=== PATIENT | male | born 1995 | race Caucasian/White ===

== ENCOUNTER 2025-01-02 03:29 | Emergency (ER) | payer OTHER ==
[~2025-01-02] VITALS: Ht 170.2 cm; Wt 68.0 kg
[2025-01-02 03:39] VITALS: O2SAT 99
[2025-01-02 05:43] VITALS: TEMP 37.4
[2025-01-02] MEDS: DIAZEPAM 5 MG TABLET PO ONE (06:36)
[2025-01-02] MEDS: ONDANSETRON 4MG ODT PO ONE (06:36)
[2025-01-02 07:10] LABS: BASOPHILS % 0.4 % (0.0-2.0); EOSINOPHILS % 0.2 % (0.0-5.0); HEMATOCRIT. 44.3 % (42.0-52.0); HEMOGLOBIN. 15.7 g/dL (14.0-18.0); LYMPHOCYTES % 26.2 % (20.0-50.0); MEAN CORPUSCULAR HEMOGLOBIN 32.5 pg (28.0-32.0); MEAN CORPUSCULAR HGB CONC 35.4 g/dL (31.0-37.0); MEAN CORPUSCULAR VOLUME 91.8 fL (80.0-94.0); MONOCYTES % 8.7 % (2.0-8.0); NEUTROPHILS % 64.5 % (40.0-76.0); PLATELET 259 x1000/uL (130-400); RED BLOOD CELL COUNT 4.83 mill/uL (4.7-6.1)
[2025-01-02 07:14] LABS: CARBON DIOXIDE 26 mEq/L (21-32); CHLORIDE 94 mEq/L (98-107); POTASSIUM 3.9 mEq/L (3.5-5.1); SODIUM 135 mEq/L (136-145)
[2025-01-02 07:15] LABS: CALCIUM 10.7 mg/dL (8.7-10.4)
[2025-01-02 07:19] LABS: CREATININE 1.1 mg/dL (0.6-1.3)
[2025-01-02 07:20] LABS: GLUCOSE 82 mg/dL (70-105); UREA NITROGEN BLOOD 13 mg/dL (9-23)
[2025-01-02 07:21] LABS: ACETAMINOPHEN < 2 ug/mL (10-30); ALANINE AMINOTRANSFERASE 23 IU/L (10-49); ASPARTATE AMINOTRANSFERASE 31 IU/L (<34)
[2025-01-02 07:22] LABS: ALBUMIN 5.8 g/dL (3.2-4.8); BILIRUBIN TOTAL 1.3 mg/dL (0.1-1.0); PROTEIN TOTAL 8.3 g/dL (6.0-8.3)
[2025-01-02 09:01] VITALS: BP 168/100; PULSE 95; RESP 18; O2SAT 100
== END 2025-01-02 09:02 | disposition home or self-care (01) ==
LOC: ER 03:29
DX: F41.9 Anxiety disorder, unspecified (principal); R11.0 Nausea; R07.9 Chest pain, unspecified; Z79.899 Other long term (current) drug therapy
CPT/HCPCS: 80053; 80307; 85025; 36415; 71045; 93005; 99285; Q0162; Z7610

== ENCOUNTER 2025-01-15 17:20 | Emergency (ER) | payer OTHER ==
[~2025-01-15] VITALS: Ht 175.3 cm; Wt 69.0 kg
[2025-01-15 17:28] VITALS: O2SAT 97
[2025-01-15] MEDS ORDERED: ONDANSETRON 4MG ODT PO STA (18:37)
[2025-01-15 19:01] LABS: BASOPHILS % 0.8 % (0.0-2.0); EOSINOPHILS % 0.5 % (0.0-5.0); HEMATOCRIT. 40.9 % (42.0-52.0); HEMOGLOBIN. 14.3 g/dL (14.0-18.0); LYMPHOCYTES % 39.7 % (20.0-50.0); MEAN CORPUSCULAR HEMOGLOBIN 32.3 pg (28.0-32.0); MEAN CORPUSCULAR HGB CONC 34.9 g/dL (31.0-37.0); MEAN CORPUSCULAR VOLUME 92.6 fL (80.0-94.0); MEAN PLATELET VOLUME 8.3 fl (7.4-10.4); MONOCYTES % 4.7 % (2.0-8.0); NEUTROPHILS % 54.3 % (40.0-76.0); PLATELET 221 x1000/uL (130-400); RED BLOOD CELL COUNT 4.42 mill/uL (4.7-6.1); RED CELL DISTRIBUTION WIDTH 13.7 % (11.6-14.6); WHITE BLOOD COUNT 5.2 x1000/uL (4.5-11.0)
[2025-01-15 19:08] LABS: CHLORIDE 107 mEq/L (98-107); POTASSIUM 3.5 mEq/L (3.5-5.1); SODIUM 147 mEq/L (136-145)
[2025-01-15 19:09] LABS: CARBON DIOXIDE 28 mEq/L (21-32)
[2025-01-15 19:10] LABS: CALCIUM 8.6 mg/dL (8.7-10.4)
[2025-01-15 19:12] LABS: PROTHROMBIN TIME 11.1 sec (9.6-11.0)
[2025-01-15 19:14] LABS: CREATININE 0.8 mg/dL (0.6-1.3); GLUCOSE 96 mg/dL (70-105); UREA NITROGEN BLOOD 14 mg/dL (9-23)
[2025-01-15 19:35] LABS: ETHANOL BLOOD 410 mg/dL (<10)
[2025-01-15] MEDS: SODIUM CHLORIDE 0.9% 1,000 ML IV ONE (20:28)
[2025-01-15 20:35] LABS: CLARITY URINE CLEAR (CLEAR); COLOR URINE YELLOW (YELLOW); GLUCOSE URINE NEGATIVE (NEGATIVE); KETONES URINE NEGATIVE (NEGATIVE); LEUKOCYTE ESTERASE URINE NEGATIVE (NEGATIVE); NITRITE URINE NEGATIVE (NEGATIVE); OCCULT BLOOD URINE NEGATIVE (NEGATIVE); PH URINE 7.5 (4.5-8.0); PROTEIN URINE NEGATIVE (NEGATIVE); SPECIFIC GRAVITY URINE 1.005 (1.005-1.030)
[2025-01-15] MEDS: ONDANSETRON 4MG ODT PO SCH (20:37)
[2025-01-15] MEDS ORDERED: TETANUS, DIPHTHERIA, PERTUSSIS VAC/PF 0.5ML (>10YR OLD) IM ONE (21:00)
[2025-01-15 21:05] LABS: *AMPHETAMINES SCREEN URINE NEGATIVE (NEGATIVE); *BARBITURATES SCREEN URINE NEGATIVE (NEGATIVE); *BENZODIAZEPINES SCREEN URINE PRESUMPTIVE POSITIVE (NEGATIVE); *COCAINE SCREEN URINE NEGATIVE (NEGATIVE); CANNABINOID URINE SCREEN NEGATIVE (NEGATIVE); ECSTASY MDMA SCREEN URINE NEGATIVE (NEGATIVE); METHADONE URINE SCREEN NEGATIVE (NEGATIVE); OPIATES URINE SCREEN NEGATIVE (NEGATIVE); PHENCYCLIDINE URINE SCREEN NEGATIVE (NEGATIVE)
[2025-01-15 21:55] VITALS: BP 128/86; PULSE 72; RESP 18; O2SAT 99
== END 2025-01-15 22:03 | disposition home or self-care (01) ==
LOC: ER 17:20
DX: F10.129 Alcohol abuse with intoxication, unspecified (principal); S01.111A Laceration without foreign body of right eyelid and periocular area, initial encounter; I10 Essential (primary) hypertension; F41.9 Anxiety disorder, unspecified; Z79.899 Other long term (current) drug therapy; Z86.73 Personal history of transient ischemic attack (TIA), and cerebral infarction without residual deficits; W18.30XA Fall on same level, unspecified, initial encounter; Y93.89 Activity, other specified; Y92.89 Other specified places as the place of occurrence of the external cause; Y99.8 Other external cause status; Y90.9 Presence of alcohol in blood, level not specified
CPT/HCPCS: 80305; 80048; 81003; 80320; 83690; 85025; 85610; 36415; 70450; 12011; 96360; 99284; Q0162; J7030; Z7610; G0480